=== PATIENT | female | born 1960 | race Caucasian/White ===

== ENCOUNTER 2019-01-08 21:36 | Emergency (ER) | payer OTHER ==
[~2019-01-08] VITALS: Ht 165.1 cm; Wt 59.4 kg
[2019-01-08 21:48] VITALS: Ht 165.1 cm; Wt 59.4 kg
[2019-01-08 23:42] VITALS: BP 139/88
== END 2019-01-08 23:42 | disposition home or self-care (01) ==
LOC: ED 21:36
DX: S16.1XXA Strain of muscle, fascia and tendon at neck level, initial encounter (principal); E03.9 Hypothyroidism, unspecified; V49.9XXA Car occupant (driver) (passenger) injured in unspecified traffic accident, initial encounter; Y93.I9 Activity, other involving external motion; Y92.413 State road as the place of occurrence of the external cause; Y99.8 Other external cause status
CPT/HCPCS: J1885